=== PATIENT | female | born 1965 | race Caucasian/White ===

== ENCOUNTER 2018-05-04 09:34 | Day surgery (SDC) | payer BC ==
[2018-05-04] MEDS ORDERED: Lactated Ringer's 500 ML IV ONE (09:51)
[2018-05-04 10:00] VITALS: TEMP 96.7
[2018-05-04] MEDS ORDERED: Propofol 10 mg/ml Inj (20 ML) ONE (10:55)
[2018-05-04] MEDS ORDERED: Midazolam 2 MG/2 ML VIAL ONE (10:55)
[2018-05-04 11:30] VITALS: O2SAT 99
[2018-05-04 11:53] VITALS: BP 118/48; PULSE 70; RESP 18
== END 2018-05-04 11:54 | disposition home or self-care (01) ==
LOC: H.ENDO 09:34
PROVIDERS: ATTEND Internal Medicine Gastroenterology
DX: Z12.11 Encounter for screening for malignant neoplasm of colon (principal); K64.8 Other hemorrhoids; K29.50 Unspecified chronic gastritis without bleeding; K30 Functional dyspepsia
CPT/HCPCS: 43239; 45378; 88305; J2001; J2250; J2704; J7120